=== PATIENT | male | born 1975 | race African-American/Black ===

== ENCOUNTER 2020-08-13 19:22 | Emergency (ER) | payer MEDICAID, MEDICARE ==
[~2020-08-13] VITALS: Ht 190.5 cm; Wt 86.2 kg
[~2020-08-13 19:22] MED LIST: HYDR-3972; TAMS0.4C34
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
--- NOTE | 2020-08-13 20:50 | NUR ---
DUSTIN RIDLEY NP AT BEDSIDE FOR EVALUATION
[2020-08-13] MEDS ORDERED: IBUPROFEN 400 MG TABLET PO ONE (21:00)
[2020-08-13] MEDS ORDERED: ONDANSETRON 4 MG TAB.RAPDIS SL ONE (21:00)
[2020-08-13] MEDS ORDERED: HYDROCODONE/APAP 10/325MG TABLET PO ONE (21:00)
[2020-08-13] MEDS ORDERED: IBUPROFEN 400 MG TABLET ONE (21:01)
[2020-08-13] MEDS ORDERED: HYDROCODONE/APAP 10/325MG TABLET ONE (21:01)
[2020-08-13] MEDS ORDERED: ONDANSETRON 4 MG TAB.RAPDIS ONE (21:02)
--- NOTE | 2020-08-13 21:26 | NUR ---
PT BROUGHT BY RADIOLOGY TO XRAY
--- NOTE | 2020-08-13 21:50 | NUR ---
PT RETURNED FROM XRAY
--- NOTE | 2020-08-13 22:03 | NUR ---
Patient discharged to home in stable condition. Written and verbal after care instructions given. Patient verbalizes understanding of instruction.Pt ambulatory with a steady gait. Pt instructed not to drive, pt verbalized understanding.
[2020-08-13 22:04] VITALS: BP 127/81
== END 2020-08-13 22:04 | disposition home or self-care (01) ==
LOC: ER 19:25
DX: S13.4XXA Sprain of ligaments of cervical spine, initial encounter (principal); S20.212A Contusion of left front wall of thorax, initial encounter; F43.10 Post-traumatic stress disorder, unspecified; Z79.899 Other long term (current) drug therapy; V49.59XA Passenger injured in collision with other motor vehicles in traffic accident, initial encounter; Y93.89 Activity, other specified; Y92.488 Other paved roadways as the place of occurrence of the external cause; Y99.8 Other external cause status
CPT/HCPCS: 71100; 71120; 72050; 99284; Q0162